=== PATIENT | male | born 1940 | race Caucasian/White ===

== ENCOUNTER 2017-01-29 17:44 | Emergency (ER) | payer MEDICARE ==
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
[2017-01-29 19:30] LABS: MEAN CORPUSCULAR HEMOGLOBIN 30.4 pg (28.0-34.0); MEAN CORPUSCULAR VOLUME 91.8 fl (80.0-100.0); eGFR (African) > 60; eGFR (Non-African) > 60
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
[2017-01-30 04:02] VITALS: BP 129/74
[2017-01-30 05:42] LABS: APPEARANCE,URINE CLEAR (CLEAR); COLOR,URINE YELLOW (YELLOW); OCCULT BLOOD,URINE 2+ (NEGATIVE); PH URINE 5.5 (5.0 - 8.0); UROBILINOGEN URINE 0.2 Eu (0.2-1.0)
[2017-01-30 06:31] LABS: SEGMENTED NEUTROPHILS % 90 % (39-79)
== END 2017-01-29 20:21 | disposition home or self-care (01) ==
LOC: ED 17:44
DX: S87.81XA Crushing injury of right lower leg, initial encounter (principal); W30.89XA Contact with other specified agricultural machinery, initial encounter; Y93.9 Activity, unspecified; Y99.9 Unspecified external cause status
CPT/HCPCS: 73590; 73610; 80053; 81002; 85025; 99283

== ENCOUNTER 2017-02-22 09:53 | Outpatient (CLI) | payer MEDICARE ==
[2017-01-30 04:02] VITALS: BP 129/74
== END 2017-02-22 09:54 ==
LOC: LABRHC 09:53
PROVIDERS: ATTEND Family Medicine
DX: R73.9 Hyperglycemia, unspecified (principal)
CPT/HCPCS: 83036

== ENCOUNTER 2018-10-08 11:03 | Emergency (ER) | payer MEDICARE ==
--- NOTE | 2018-10-08 12:07 | Diagnostic Imaging Report ---
NELSON RICHARDS [facility] [address] [facility] [address] [place] [address]. [id number] Report Submission Date: Oct 08, 2018 11:35:04 AM AIRLINE HOSTESS Patient Study Name: CONCEPCION CABAN Date: Oct 08, 2018 11:09:58 AM AIRLINE HOSTESS Modality Type: CT Gender: M Description: CT BRAIN W/O CONTRAST : 40 Institution: [facility] Physician: NELSON RICHARDS HISTORY: 77-year-old male fell COMPARISON: None available. TECHNIQUE: Noncontrast axial CT images of the head were performed. Sagittal and coronal reformatted images were obtained. FINDINGS: No intracranial hemorrhage, mass, midline shift, hydrocephalus, or evidence of acute large vessel infarct. There is mild global brain atrophy. There are thick atherosclerotic calcifications of the intracranial ICAs. The mastoid air cells and middle ear spaces are clear. There is mild mucosal thickening of the left maxillary sinus. No cranial fracture. There is posterior midline scalp edema. IMPRESSION: Posterior midline scalp edema without underlying cranial fracture, intracranial hemorrhage, or other acute intracranial process. Electronically signed on Oct 08, 2018 11:35:04 AM AIRLINE HOSTESS by: Darinel HOPSON
--- NOTE | 2018-10-08 12:07 | Diagnostic Imaging Report ---
NELSON RICHARDS [facility] [address] [facility] [address] [place] [address]. [id number] Report Submission Date: Oct 08, 2018 11:38:00 AM ASSEMBLY ROOM SUPERVISOR Patient Study Name: CONCEPCION CABAN Date: Oct 08, 2018 11:12:08 AM ASSEMBLY ROOM SUPERVISOR Modality Type: CT Gender: M Description: CT C-SPINE W/O CONTRAS : 40 Institution: [facility] Physician: NELSON RICHARDS HISTORY: 77-year-old male fell COMPARISON: None available. TECHNIQUE: Noncontrast axial CT images of the cervical spine were performed. Sagittal and coronal reformatted images were obtained. IMPRESSION: 1. No fracture or acute osseous abnormality of the cervical spine. 2. 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 Recommend follow-up outpatient noncontrast MRI of the cervical spine for better characterization. 3. Advanced degenerative disc disease and facet arthropathy with multilevel significant neural foraminal stenosis bilaterally. 4. Bilateral maxillary sinus mucosal thickening, greater on the left. 5. Thick atherosclerotic calcifications of the bilateral carotid bulbs. Electronically signed on Oct 08, 2018 11:38:00 AM ASSEMBLY ROOM SUPERVISOR by: Darinel HOPSON
[2018-10-08] MEDS ORDERED: LIDOCAINE HCL 1%/EPI. (1:100,000) MDV 20ML VIAL IJ ONE ×2 (12:27→12:28)
--- NOTE | 2018-10-08 12:37 | ED Physician Documentation ---
General Adult - HISTORIAN Historian: patient, spouse - HPI Stated Complaint: Fell tdown stairs, hit head, +LOC Chief Complaint: General Adult Onset: minutes Timing: still present Severity: moderate Further Comments: yes (Pt is a 77 yo male who fell backward on his stairs at home and struck the back of his head on a carpeted floor. Pt has an occiptal scalp abrasion/laceration. Pt may have had a brief LOC. Pt does not know exactly what made him fall. He says he is wearing a pair of shoes that he doesn't wear often and they may have tripped him up. Pt does not have a headache and denies neck pain. Pt takes daily asa 81 mg; no other anticoagulants.) - ROS CONST: no problems EYES/ENT: none CVS/RESP: none GI/: none MS/SKIN/LYMPH: other (occipital scalp laceration/abrasion) NEURO/PSYCH: other (? LOC) - PAST HX Past History: other (Afib) Surgeries/Procedures: other (b/l knee replacement; L carpel tunnel surgery.) Allergies/Adverse Reactions: Allergies Allergy/AdvReac Type Severity Reaction Status Date / Time No Known Drug Allergies Allergy Verified 10/08/18 11:39 Home Medications: Ambulatory Orders Medication Instructions Recorded Aspirin [Blanca] DAILY 10/08/18 - SOCIAL HX Smoking History: non-smoker - FAMILY HX Family History: No - VITAL SIGNS Vital Signs: Vital Signs Temp Pulse Resp BP Pulse Ox 97.7 F 77 178/92 94 10/08/18 11:03 10/08/18 11:03 10/08/18 11:03 10/08/18 11:03 - REVIEWED ASSESSMENTS Nursing Assessment Reviewed: Yes Vitals Reviewed: Yes Procedures Wound Location: head Wound Length: 1 cm, 1 cm, 2 cm Wound's Depth, Shape: superficial Wound Explored: clean Irrigated w/ Saline (ccs): 20 Betadine Prep?: Yes (Surjit) Anesthesia: Lidocaine w/ Epi Wound Debrided: minimal Wound Repaired With: sutures Suture Size/Type: 4:0, nylon Number of Sutures: 6 Layer Closure?: No Sterile Dressing Applied?: Yes Splint Applied?: No Sling Applied?: No Progress - Progress Progress: Triple Antibiotic and sterile dressing applied in ER. d/c instructions Apply Triple Antibiotic to sutured area twice daily for 5 days. Follow up with primary provider in 5 to 7 days for suture removal. Follow up with primary provider about carotid atherosclerosis seen on head CT and about findings on cervical neck CT and possible follow up imaging. Return to ER if you have new symptoms such as nausea/vomiting, changes in speech or vision or any new concerns. ED Results Lab/Radiology - Orders Orders: ED Orders Category Date Time Status CT BRAIN W/O CONTRAST Stat Exams 10/08/[address] C-SPINE [CT C-SPINE W/O CONTRAST] Stat Exams 10/08/18 Completed CBC/PLATELET/DIFF Routine Lab 10/08/18 12:30 Received CMP Routine Lab 10/08/18 12:29 Received TROPONIN I (cTnI) Stat Lab 10/08/18 12:29 Received Lidocaine 1%/Epinephrine [Xylocaine 1%-EPI 1:100,000] Med 10/08/18 12:27 Discontinued 1 ml IJ .STK-MED ONE Lidocaine 1%/Epinephrine [Xylocaine 1%-EPI 1:100,000] Med 10/08/18 12:28 Discontinued 5 ml IJ NOW ONE EKG WITH COMPARISON Stat Ther 10/08/18 Ordered General Adult Physical Exam - PHYSICAL EXAM GENERAL APPEARANCE: mild distress EENT: eye inspection normal, pharynx normal NECK: normal inspection, supple RESPIRATORY: no resp distress, chest non-tender, breath sounds normal CVS: irregularly irregular rhy ABDOMEN: soft, no organomegaly, normal bowel sounds BACK: normal inspection, no CVA tenderness SKIN: other (occipital scalp abrasion/laceration) EXTREMITIES: non-tender, normal range of motion, no evidence of injury NEURO: CN's nml as tested, motor nml, sensation nml, other (oriented to place, approximately oriented to time, baseline ms) Discharge Clincal Impression: Fall, head trauma, scalp laceration. Referrals: Lex Keller MD [Primary Care Provider] - 2 Days Condition: Stable Disposition: 01 HOME, SELF-CARE Decision to Admit: NO Decision Time: 13:10
[2018-10-08 14:13] VITALS: BP 152/86
[2018-10-09 07:34] LABS: MEAN CORPUSCULAR HEMOGLOBIN 29.6 pg (28.0-34.0)
[2018-10-09 07:35] LABS: BASOPHILS % 0.3 (0.0-1.5); EOSINOPHILS % 2.1 % (0.0-6.8); NEUTROPHILS # 8.5 # k/uL (1.4-7.7)
[2018-10-09 07:36] LABS: eGFR (Non-African) > 60
== END 2018-10-08 13:30 | disposition home or self-care (01) ==
LOC: ED 11:03
DX: S01.01XA Laceration without foreign body of scalp, initial encounter (principal); S09.8XXA Other specified injuries of head, initial encounter; W10.9XXA Fall (on) (from) unspecified stairs and steps, initial encounter; Y93.01 Activity, walking, marching and hiking; Y92.009 Unspecified place in unspecified non-institutional (private) residence as the place of occurrence of the external cause
CPT/HCPCS: 12002; 36415; 70450; 72125; 80053; 84484; 85025; 93005; 99283; 99285; J7030; S1016

== ENCOUNTER 2019-05-03 13:15 | Outpatient (CLI) | payer MEDICARE ==
[2019-05-03 13:27] LABS: eGFR (Non-African) > 60
[2019-05-03 13:28] LABS: HDL 47 mg/dL (>40)
[2019-05-04 09:24] LABS: A1C 5.4 % (<5.7)
== END 2019-05-03 13:17 ==
LOC: LABRHC 13:15
PROVIDERS: ATTEND Family Medicine
DX: R73.9 Hyperglycemia, unspecified (principal); I48.91 Unspecified atrial fibrillation
CPT/HCPCS: 80053; 80061; 83036; 85610

== ENCOUNTER 2019-06-08 08:00 | Outpatient (CLI) | payer MEDICARE | END 2019-06-08 08:03 | LOC: LAB 08:00 | PROVIDERS: ATTEND Family Medicine | DX: I48.91 Unspecified atrial fibrillation (principal) | CPT/HCPCS: 36415; 85610 ==

== ENCOUNTER 2019-06-12 07:52 | Outpatient (CLI) | payer MEDICARE | END 2019-06-12 07:54 | LOC: LAB 07:52 | PROVIDERS: ATTEND Family Medicine | DX: I48.91 Unspecified atrial fibrillation (principal) | CPT/HCPCS: 36415; 85610 ==

== ENCOUNTER 2019-06-15 07:58 | Outpatient (CLI) | payer MEDICARE | END 2019-06-15 08:08 | LOC: LAB 07:58 | PROVIDERS: ATTEND Family Medicine | DX: I48.91 Unspecified atrial fibrillation (principal) | CPT/HCPCS: 36415; 85610 ==

== ENCOUNTER 2019-06-22 07:51 | Outpatient (CLI) | payer MEDICARE | END 2019-06-22 07:53 | LOC: LAB 07:51 | PROVIDERS: ATTEND Family Medicine | DX: I48.91 Unspecified atrial fibrillation (principal) | CPT/HCPCS: 36415; 85610 ==

== ENCOUNTER 2019-07-02 08:06 | Outpatient (CLI) | payer MEDICARE | END 2019-07-02 08:08 | LOC: LAB 08:06 | PROVIDERS: ATTEND Family Medicine | DX: I48.91 Unspecified atrial fibrillation (principal) | CPT/HCPCS: 36415; 85610 ==